=== PATIENT | male | born 1995 | race Caucasian/White ===

== ENCOUNTER 2024-01-24 10:00 | Outpatient (RCR) | payer BC, SELFPAY ==
--- NOTE | 2023-08-21 11:12 | HP.PTEVAL_ITS ---
Patient's Visit Information Visit Information Visit Information: ELMER WILLS is a 27 year old M referred to Physical Therapy by Dr. Douglas Andrews MD with a diagnosis of R ACL repair with quad tendon, medial meniscus repair. DOS: 08/02/23. Date of Evaluation: 08/21/23 Physical Therapist: Twin Braxton, DPT Visit Plan Frequency: 2x /Week Duration: 12 weeks Plan: 1) work on TKE, knee flexion to 90deg until 08/30/23 then increase to full as tolerated. 2) quad sets with stim until good quad activation, progress SLR 3) vaso and ice for edema. 4) Pt. is NWBing until 08/30/23. NO flexion past 90deg until 08/30/23. No squatting. HEP at IE: quad sets, heel prop, assisted heel slides, HS stretch Subjective Subjective: Pt. is here today for his initial evaluation with diagnosis of R ACL repair with quad tendon autograft and medial meniscus repair. DOS: 08/02/23. Pt. arrives with use of crutches with good use. Pt. reports overall not much pain. He is HEP compliant with hangs, quad sets and heel slides. Pt. is icing as indicated. 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 He is currently working from home. Pt. is not drive currently as well. He is NWBing until 08/30/23 then is WBing as tolerated. No flexion past 90deg until 08/30/23 as well, then increase as tolerated. Pt. is sleeping well. He is hopeful to get back to all work and recreational activities without limitations. Pain R knee: Pain Intensity (Out of 10): 1 Pain Intensity Range: 0 and 2 Objective Objective: POSTURE: Pt. does a good job of NWBing on RLE. Pt. has good posture in stance. PALPATION: Pt. has good healing incisions, no signs of infection. Pt. does have marked swelling as expected. 5Cm difference between LEs at mid patella, 4.5 CM difference between at mid quad. NEURO: Pt. has normal sensation throughout BLEs. Pt. has normal B achilles DTR. ROM: R knee: AROM: 0-3-71, PROM 0-0-79deg. Pt. has tight B hamstrings. MMT: RLE: ankle 5/5 throughout; knee: patient has a fairly weak quad contraction, unable to complete SLR with RLE. LLE: ankle 5/5 throughout; knee: ext 38#, flexion 21#; hip: flexion 32#. GAIT: pt. has good gait pattern with use of crutches, good non wt. bearing on RLE. Balance/Special Test Scores Lower Extremity Functional Score: 22 Goals Goal 1:: LTG: Pt. to be I with HEP. Goal Time Frame: 4-6 Weeks Goal 2:: STG: Pt. to have increased R knee ROM to 0-0-90deg Goal Time Frame: 2 Weeks Goal 3:: LTG: Pt. to have symmetrical B knee ROM allowing for increased ability to complete all recreational and work activities. Goal Time Frame: 4-6 Weeks Goal 4:: LTG: pt. to complete 20 SLR without extensor lag indicating increased quad control. Goal Time Frame: 2-4 Weeks Goal 5:: LTG: Pt. to have symmetrical B LE strength allowing for increased stability for recreational activities without limitations. Goal Time Frame: 6-8 Weeks Goal 6:: STG: Pt. to to have symmetrical girth measurements indicating decreased RLE edema. Goal Time Frame: 2-4 Weeks Rehabilitation Potential Physical Therapy Diagnosis: Pt. has signs and symptoms consistent with R ACL repair with quad tendon autograft and medial meniscus repair. DOS: 08/02/23. Pt. has marked hypomobility, weakness, difficulty with gait, and increased edema. Pt. would benefit from PT to address the above issues progressing back to all work and recreational activities without limitations. Rehabilitation Potential: Excellent Anticipated Interventions Patient/Client Instruction: Educate patient on: Condition, Plan of Care, Risk Factors and Benefits of Fitness Program For the Purpose of:: To improve decision making, To facilitate caregiver knowledge, To improve self management, To prevent re-injury and To improve ability to perform tasks related to life management Therapeutic Exercise to Include: Strength training, Power training, Postural training, Flexibilty training, Gait and locomotor training, Passive ROM, Active ROM and Dynamic Lumbar Stabilization For the Purpose of:: To decrease pain, To decrease swelling/inflammation, To increase ROM, To improve nutrient delivery to tissue, To increase oxygenation perfusion, To improve muscle performance and motor function, To improve ability to perform ADL's, To increase tolerance to activity/condition/position, To improve gait and locomotor functions, To improve health of tissue, To decrease soft tissue restriction and To increase flexibility/ROM IF ES: Yes Cryotherapy (ice pack, ice massage): Yes Vasopneumatic device: Yes Text: Thank you for the opportunity to evaluate your patient. For Medicare and Medicare HMO plans, please review the plan of care and approve it. It will need to be FAXED BACK to us at [phone] for Medicare purposes. For Medicare only, by signing this I certify the plan of care. Please let me know if there are questions or concerns regarding this plan of care. Physician Signature: Date:
--- NOTE | 2023-09-28 10:17 | HP.PTREVAL ---
Re-Evaluation Intro: Dr. Douglas Andrews MD, It has been my pleasure to treat ELMER WILLS over the last 11 visits for R ACL repair with quad tendon, medial meniscus repair. DOS: 08/02/23. Please see the progress note below for an update on the physical therapy plan of care! Subjective Subjective: Pt. reports overall doing well, no major issues noted. Pt. is now allowed to progress into second phase of protocol. Pt. is able to wean out of brace as well. No pain noted pre treatment. Objective Objective/Function: ROM: 0-0- 123deg. MMT: Pt. able to complete SLR with minimal lag without issues. RLE: knee: ext 21.9#, flexion 23.5#; hip: flexion 34.1#, abd 31.1#. LLE: ext 41.4#, flexion 33.6#; hip: flexion 39.1#, abd 33.2#. gait: Pt. has fairly normal gait pattern. Pt. has slight knee flexion during last part of stance phase. Pt. okay to wean from brace as able. Plan Plan Plan: Pt. is good to progress phase II strengthening in CKC. Focus on good quad, glute and HS strength. Add in CKC exercises. Still avoid deep squats and lunging. Progress stability in SLS and dynamic balance. No plyometrics yet. I want to extend POC x2 per week for 6 weeks to work on progressive strengthening. Balance/Gait/Functional tests Balance/Special Test Scores Lower Extremity Functional Score: 22 Goals Goals Goal 1:: LTG: Pt. to be I with HEP. Goal Time Frame: 4-6 Weeks Goal Progress: Progressing Goal 2:: STG: Pt. to have increased R knee ROM to 0-0-90deg(GOal met),, New goal: Pt. to have 0-0-130deg of R knee ROM. Goal Time Frame: 2 Weeks Goal Progress: Progressing Goal 3:: LTG: Pt. to have symmetrical B knee ROM allowing for increased ability to complete all recreational and work activities. Goal Time Frame: 4-6 Weeks Goal Progress: Progressing Goal 4:: LTG: pt. to complete 20 SLR without extensor lag indicating increased quad control. Goal Time Frame: 2-4 Weeks Goal Progress: Goal Met Goal 5:: LTG: Pt. to have symmetrical B LE strength allowing for increased stability for recreational activities without limitations. Goal Time Frame: 6-8 Weeks Goal Progress: Progressing Goal 6:: STG: Pt. to to have symmetrical girth measurements indicating decreased RLE edema. Goal Time Frame: 2-4 Weeks Goal Progress: Progressing Anticipated Interventions Anticipated Interventions Patient/Client Instruction: Educate patient on: Condition, Plan of Care, Risk Factors and Benefits of Fitness Program For the Purpose of:: To improve decision making, To facilitate caregiver knowledge, To improve self management, To prevent re-injury and To improve ability to perform tasks related to life management Therapeutic Exercise to Include: Strength training, Power training, Postural training, Flexibilty training, Gait and locomotor training, Passive ROM, Active ROM and Dynamic Lumbar Stabilization For the Purpose of:: To decrease pain, To decrease swelling/inflammation, To increase ROM, To improve nutrient delivery to tissue, To increase oxygenation perfusion, To improve muscle performance and motor function, To improve ability to perform ADL's, To increase tolerance to activity/condition/position, To improve gait and locomotor functions, To improve health of tissue, To decrease soft tissue restriction and To increase flexibility/ROM IF ES: Yes Cryotherapy (ice pack, ice massage): Yes Vasopneumatic device: Yes Re-Evaluation Ending Re-evaluation ending: Please do not hesitate to contact me at [phone] by phone or if you have questions or concerns regarding this new plan of care! Sincerely, Twin Braxton DPT
--- NOTE | 2023-11-07 15:05 | HP.PTREVAL ---
Re-Evaluation Intro: Dr. Douglas Andrews MD, It has been my pleasure to treat ELMER WILLS over the last 14 visits for R ACL repair with quad tendon, medial meniscus repair. DOS: 08/02/23. Please see the progress note below for an update on the physical therapy plan of care! Subjective Subjective: PT. reports overall no pain, but has had some crunching at posterior knee with knee flexion. Pt. saw physician whom was pleased. Pt. got new script for PT 2x per week for 6 weeks. With instructions to start elliptical, light jogging Objective Objective/Function: ROM: 0-0-137 Strength testing: Quads: R 70.2# L 74.3#=94% Hams: R 80.9# L 79.4#=98% G med: R 54.9# L 58.8#=93% Performance testing: SL lateral step down: good control from 4 box but challenged at traditional step height of 8 STAR excursion with off by 6 inchs laterally, 4 inches anteriorly and 3 inches posterior.- I would like these to be closer for more stability with all dynamic and plyometric movements. Overall ROM and strength is doing well with patient today. Pt. has not started to run/jog, but physician would like him to start doing so. We have also not addressed any agility at this point in time and is now ready to do so. 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 Plan Plan Plan: I am asking for an extended POC x2 per week for 6 weeks. Work on jogging progression, and agility exercises. Cont. to add in stability with dynamic movements. Avoid movements that result in increased edema, monitor for the following day. Balance/Gait/Functional tests Balance/Special Test Scores Lower Extremity Functional Score: 22 Goals Goals Goal 1:: LTG: Pt. to be I with HEP. Goal Time Frame: 4-6 Weeks Goal Progress: Progressing Goal 2:: STG: Pt. to have increased R knee ROM to 0-0-90deg(GOal met),, New goal: Pt. to have 0-0-130deg of R knee ROM. Goal Time Frame: 2 Weeks Goal Progress: Progressing Goal 3:: LTG: Pt. to have symmetrical B knee ROM allowing for increased ability to complete all recreational and work activities. Goal Time Frame: 4-6 Weeks Goal Progress: Progressing Goal 4:: LTG: pt. to complete 20 SLR without extensor lag indicating increased quad control. Goal Time Frame: 2-4 Weeks Goal Progress: Goal Met Goal 5:: LTG: Pt. to have symmetrical B LE strength allowing for increased stability for recreational activities without limitations. Goal Time Frame: 6-8 Weeks Goal Progress: Progressing Goal 6:: STG: Pt. to to have symmetrical girth measurements indicating decreased RLE edema. Goal Time Frame: 2-4 Weeks Goal Progress: Progressing Anticipated Interventions Anticipated Interventions Patient/Client Instruction: Educate patient on: Condition, Plan of Care, Risk Factors and Benefits of Fitness Program For the Purpose of:: To improve decision making, To facilitate caregiver knowledge, To improve self management, To prevent re-injury and To improve ability to perform tasks related to life management Therapeutic Exercise to Include: Strength training, Power training, Postural training, Flexibilty training, Gait and locomotor training, Passive ROM, Active ROM and Dynamic Lumbar Stabilization For the Purpose of:: To decrease pain, To decrease swelling/inflammation, To increase ROM, To improve nutrient delivery to tissue, To increase oxygenation perfusion, To improve muscle performance and motor function, To improve ability to perform ADL's, To increase tolerance to activity/condition/position, To improve gait and locomotor functions, To improve health of tissue, To decrease soft tissue restriction and To increase flexibility/ROM IF ES: Yes Cryotherapy (ice pack, ice massage): Yes Vasopneumatic device: Yes Re-Evaluation Ending Re-evaluation ending: Please do not hesitate to contact me at [phone] by phone or if you have questions or concerns regarding this new plan of care! Sincerely, Twin Braxton DPT
== END 2024-01-24 19:00 | disposition home or self-care (01) ==
LOC: PT 10:00
PROVIDERS: Referring Provider Orthopaedic Surgery; Visit Provider Orthopaedic Surgery
DX: S83.511D Sprain of anterior cruciate ligament of right knee, subsequent encounter (principal)
CPT/HCPCS: 97014; 97016; 97110; 97161; 97530; G0283

== ENCOUNTER 2024-08-14 09:55 | Outpatient (RCR) | payer BC, SELFPAY | END 2024-08-14 19:00 | disposition home or self-care (01) | LOC: PT 09:55 | DX: Z00.00 Encounter for general adult medical examination without abnormal findings (principal) ==